=== PATIENT | female | born 1945 | race Caucasian/White ===

== ENCOUNTER 2016-10-05 21:36 | Emergency (ER) | payer OTHER, MEDICAID ==
[2016-10-05 22:50] VITALS: BP 146/85
== END 2016-10-05 23:12 | disposition home or self-care (01) ==
LOC: ED 21:36
DX: M76.31 Iliotibial band syndrome, right leg (principal); M19.90 Unspecified osteoarthritis, unspecified site; Z79.899 Other long term (current) drug therapy